=== PATIENT | female | born 1985 | race Caucasian/White ===

== ENCOUNTER → 2019-11-11 10:01 | Outpatient (CLI) | payer BC, SELFPAY ==
--- NOTE | ~2019-11-11 | US_ITS ---
EXAMINATION: US OB transvaginal DATE: 11/11/2019 11:18 INDICATION: Gestational dating TECHNIQUE: Real-time transabdominal and transvaginal obstetric ultrasound. FINDINGS: No prior studies for comparison. The uterus measures 6.7 x 5.3 x 6.5 cm. There is an intrauterine gestational sac, with pole jae ntified. There is a subchorionic hemorrhage measuring 9 x 8 x 4 mm. The crown rump length measures 1. 78 cm, which correlates with a estimated gestational age of 8 weeks 2 days. Ovaries are unremarkable. heart tones are identified measuring 172 bpm. IMPRESSION: 1. SL IUP with an EGA of 8 weeks, 2 days (EDC by current ultrasound of 06/20/2020). 2: Small subchorionic hemorrhage. Reviewed, dictated and finalized at location B. IMPRESSION: 1. SL IUP with an EGA of 8 weeks, 2 days (EDC by current ultrasound of ). 2: Small subchorionic hemorrhage.
== END ==
PROVIDERS: Visit Provider Obstetrics & Gynecology Gynecology
DX: O26.841 Uterine size-date discrepancy, first trimester (principal); Z3A.08 8 weeks gestation of pregnancy
CPT/HCPCS: 76817

== ENCOUNTER → 2019-12-09 11:22 | Outpatient (CLI) | payer BC, SELFPAY ==
--- NOTE | ~2019-12-09 | US_ITS ---
EXAMINATION: US OB <= 14 weeks fetus DATE: 12/09/2019 12:00 INDICATION: Subchorionic hematoma TECHNIQUE: Real-time pelvic ultrasound utilizing both a transvaginal and transabdominal probe was pe rformed. The interpreting radiologist was not present for the study. COMPARISON: None. FINDINGS: The uterus measures 8.9 x 7.1 x 7.5 cm. There is an intrauterine gestational sac. A yolk sac and fet al pole are identified. The crown rump length measures 5.7 cm, which correlates with an estimated ges tational age of 12 weeks and 2 days. heart motion is identified measuring 178 beats per minute (bpm) by M-mode Doppler. No evident subchorionic hematoma. The ovaries are not visualized. There is n o free fluid in the pelvis. IMPRESSION: 1. Single living fetus with heart rate of 178 bpm. 2. Gestational age by ultrasound of 12 weeks 2 day(s) +/- 1 week and 1 day with ultrasound estimated date of delivery (ANTONIO) of 06/20/2020. 3. No subchorionic hematoma. Reviewed, dictated and finalized at location B. IMPRESSION: 1. Single living fetus with heart rate of 178 bpm. 2. Gestational age by ultrasound of 12 weeks 2 day(s) +/- 1 week and 1 day wit h ultrasound estimated date of delivery (ANTONIO) of 06/20/2020. 3. No subchorionic hematoma.
== END ==
PROVIDERS: Visit Provider Obstetrics & Gynecology Gynecology
DX: O36.8910 Maternal care for other specified fetal problems, first trimester, not applicable or unspecified (principal); Z3A.12 12 weeks gestation of pregnancy
CPT/HCPCS: 76801

== ENCOUNTER → 2020-01-18 10:41 | Outpatient (CLI) | payer BC, SELFPAY ==
--- NOTE | ~2020-01-18 | US_ITS ---
EXAMINATION: US OB >= 14 weeks Fetus DATE: 01/18/2020 11:11 INDICATION: survey TECHNIQUE: Multiple obstetric sonographic images performed. FINDINGS: Comparison to multiple prior studies sequentially, with oldest reviewed study dated 020. There is a single living fetus in vertex presentation. The placenta is posterior without placenta pr evia. Placental margin is 3.2 cm to the cervix. Amniotic fluid volume is normal. cardiac activity and movement is noted with a heart rate of 147 beats per minute. The following anatomy was identified as normal: 4 chamber heart 3 vessel cord cord insertion kidneys urinary bladder stomach spine diaphragm ventricles cisterna magna cerebellum The following biometric data were obtained: BPD: 40mm corresponds to gestational age 18 weeks 2 days. Head circumference: 154 mm corresponds to gestational age 18 weeks 3 days. Abdominal circumference: 124 mm corresponds to gestational age 18 weeks 0 days. Femur length: 26 mm corresponds to gestational age 17 weeks 6 days. Head circumference to abdominal circumference ratio: 1.24 (normal range for expected gestational age is 1.08-1.27). Estimated weight: 220 grams +/- 33 grams using Hadlock method. IMPRESSION: 1: Single living intrauterine with an estimated gestational age of 18weeks 0days by initial ultrasound measurements, with an EDC of 06/20/2020 in vertex presentation. 2. Normal survey. 3: Low-lying posterior placenta measures 3.2 cm to the cervix. Reviewed, dictated and finalized at location A. UNICATION LECTURER IMPRESSION: 1: Single living intrauterine with an estimated gestational age of 18 weeks 0days by initial ultrasound measurements, with an EDC of 06/20/2020 in triston deepika presentation. 2. Normal survey. 3: Low-lying posterior placenta measures 3.2 cm to the cervix.
== END ==
PROVIDERS: Visit Provider Obstetrics & Gynecology Gynecology
DX: Z34.92 Encounter for supervision of normal pregnancy, unspecified, second trimester (principal); Z3A.18 18 weeks gestation of pregnancy
CPT/HCPCS: 76805

== ENCOUNTER 2020-03-29 11:41 | Outpatient (RCR) | payer BC, SELFPAY ==
[2020-03-29 13:11] LABS: Hematocrit 33.7 % (37.0-47.0); Hemoglobin 11.4 g/dL (12.0-15.0)
[2020-03-29 13:25] LABS: Glucose 1 Hour PP 50gm Dose 132 mg/dL
[2020-03-29 14:05] LABS: HIV 1/2 Ab P24 Ag Result Negative (Negative)
[2020-03-29] MEDS: RHO(D) IMMUNE GLOBULIN 300 MCG SYRINGE IM (15:10)
== END 2020-06-27 23:59 | disposition home or self-care (01) ==
LOC: ANHLAB 11:41
PROVIDERS: Visit Provider Obstetrics & Gynecology Gynecology
DX: Z29.13 Encounter for prophylactic Rho(D) immune globulin (principal); Z11.4 Encounter for screening for human immunodeficiency virus [HIV]; O36.0990 Maternal care for other rhesus isoimmunization, unspecified trimester, not applicable or unspecified; Z3A.00 Weeks of gestation of pregnancy not specified
CPT/HCPCS: 36415; 82306; 82947; 85014; 85018; 85461; 86703; 90384; 96372; G0432; J2790

== ENCOUNTER 2020-03-30 20:37 | Observation (INO) | payer BC, SELFPAY ==
[2020-03-30] VITALS (15 sets, daily range): BP systolic 137–159; BP diastolic 81–102; PULSE 74–85; BMI 31.2
[2020-03-30 21:25] LABS: Basophils Percent Auto 0.3 % (0.2-1.2); Eosinophils Absolute Auto 0.2 K/mm3 (0-0.3); Hemoglobin 11.3 g/dL (12.0-15.0); Immature Granulocyte Absolute 0.19 K/mm3 (0.00-0.031); Immature Granulocyte Percent A 1.3 % (0-0.5); Lymphocytes Absolute Auto 2.46 K/mm3 (0.9-3.2); Mean Corpuscular HGB Conc 34.2 g/dl (32-36); Mean Corpuscular Hemoglobin 29.9 pg (26-34); Mean Corpuscular Volume 87.3 fl (80-100); Monocytes Absolute Auto 0.9 K/mm3 (0.1-0.6); Monocytes Percent Auto 6.5 % (2.6-8.5); Neutrophils Absolute Auto 10.7 K/mm3 (1.3-6.7); Neutrophils Percent Auto 73.9 % (45.5-73.1); Platelet Count Result 275 k/mm3 (150-375); Red Blood Count 3.78 M/mm3 (4.2-5.4); Red Cell Distribution Width 14.4 % (11.5-14.5); White Blood Count 14.4 K/mm3 (4.5-10.0)
[2020-03-30 21:29] LABS: Add Urine Microscopic? YES; Appearance Urine Clear (Clear); Bacteria Urine Trace /hpf; Bilirubin Urine Negative (Negative); Blood Urine Negative (Negative); Calcium Oxalate Crystals Urine Present /hpf; Color Urine Yellow (Yellow); Glucose Urine UA Negative (Negative); Ketones Urine Negative (Negative); Leukocyte Esterase Ur Negative LEU/UL (NEGATIVE); Mucus Urine Rare /lpf; Nitrate Urine Negative (Negative); Protein Urine 1+ mg/dL (Negative); RBC Urine 0-2 /hpf (0-2); Specific Grav Ur 1.014 (1.001-1.035); Squamous Epithelial Cell Urine Occasional /hpf (Few); Urobilinogen Urine Negative mg/dL (<2.0); WBC Urine 0-3 /hpf (0-3)
[2020-03-30 21:37] LABS: Alanine Aminotransferase 14 U/L (4-35); Albumin Level 3.2 g/dL (3.5-5.1); Alkaline Phosphatase 89 U/L (38-126); Anion Gap 6 mmol/L (8-16); Aspartate Amino Transferase 19 U/L (14-36); Bilirubin,Total 0.2 mg/dL (0.2-1.3); Blood Urea Nitrogen 11 mg/dL (7-17); Calcium 9.3 mg/dL (8.4-10.2); Carbon Dioxide 22 mmol/L (22-30); Chloride 107 mmol/L (98-107); Estimated Glomerular Filt Rate > 60; Glucose 98 mg/dL (65-105); Sodium 135 mmol/L (137-145); Uric Acid 5.2 mg/dL (2.5-7.5)
[2020-03-30 21:39] LABS: Creatinine Urine 91.2 mg/dL; Total Protein Urine Random 19 mg/dL; Ur Ttl Prot Creatinine Ratio 0.21 mg/mg (0-0.20)
--- NOTE | 2020-03-30 22:45 | OBADM ---
This patient, Nithya Hong, admitted to the OB room OB Post 116 for observation. Patient/family oriented to hospital policies and general routines including ID bracelet, bed and alarms, visiting hours, pain management, procedures, bathroom and other care routines, personal items, smoking policy, room service/diet, and visiting hours. Patient/Family are encouraged to report perceived risks to care and to ask questions if they do not understand what they are told or what they should do.
[2020-03-31 00:01] VITALS: BP 148/83; PULSE 78
[2020-03-31] MEDS: NIFEdipine 30 MG TAB.ER.24 PO (00:10)
[2020-03-31 00:16] VITALS: BP 142/102; PULSE 80
[2020-03-31 00:31] VITALS: BP 147/108; PULSE 75
[2020-03-31 00:46] VITALS: BP 140/98; PULSE 79
[2020-03-31 01:01] VITALS: BP 129/85; PULSE 84
--- NOTE | 2020-04-16 11:32 | PM.OBTRLD ---
OB - Triage/Final Diagnosis Visit Information Comments/Additional reasons for admission: I have assessed the risk for this patient, Nithya Hong, and determined that she would benefit from observation care. Evaluation Laboratory results: Laboratory Tests 03/30/20 03/30/20 03/30/20 21:10 21:10 21:10 WBC 14.4 H RBC 3.78 L Hgb 11.3 L Hct 33.0 L MCV 87.3 MCH 29.9 MCHC 34.2 RDW 14.4 Plt Count 275 MPV 11.0 H Immature Gran % (Auto) 1.3 H Neut % (Auto) 73.9 H Lymph % (Auto) 17.0 L [place] % (Auto) 6.5 Eos % (Auto) 1.0 Baso % (Auto) 0.3 Lymph # (Auto) 2.46 [place] # (Auto) 0.9 H Eos # (Auto) 0.2 Baso # (Auto) 0.0 Abs Immat Gran (auto) 0.19 H Absolute Neuts (auto) 10.7 H Absolute Nucleated RBC 0.0 Nucleated RBC % 0.0 Sodium Potassium Chloride Carbon Dioxide Anion Gap BUN Creatinine Estim Creat Clear Calc Estimated GFR Glucose Uric Acid Calcium Total Bilirubin AST ALT Alkaline Phosphatase Total Protein Albumin Urine Color Yellow Urine Appearance Clear Urine pH 6.0 Ur Specific [place] 1.014 Urine Protein 1+ H Urine Glucose (UA) Negative Urine Ketones Negative Ur Blood (Man) Negative Urine Nitrate Negative Urine Bilirubin Negative Urine Urobilinogen Negative Ur Leukocyte Esterase Negative Urine RBC 0-2 Urine WBC 0-3 Ur Squamous Epith Cells Occasional Calcium Oxalate Crystal Present Urine Bacteria Trace Urine Mucus Rare U Random Total Protein 19 Urine Creatinine 91.2 Protein/Creat Ratio 2 0.21 H 03/30/20 21:10 WBC RBC Hgb Hct MCV MCH MCHC RDW Plt Count MPV Immature Gran % (Auto) Neut % (Auto) Lymph % (Auto) [place] % (Auto) Eos % (Auto) Baso % (Auto) Lymph # (Auto) [place] # (Auto) Eos # (Auto) Baso # (Auto) Abs Immat Gran (auto) Absolute Neuts (auto) Absolute Nucleated RBC Nucleated RBC % Sodium 135 L Potassium 4.0 Chloride 107 Carbon Dioxide 22 Anion Gap 6 L BUN 11 Creatinine 0.70 Estim Creat Clear Calc Not Reportable Estimated GFR > 60 Glucose 98 Uric Acid 5.2 Calcium 9.3 Total Bilirubin 0.2 AST 19 ALT 14 Alkaline Phosphatase 89 Total Protein 6.0 L Albumin 3.2 L Urine Color Urine Appearance Urine pH Ur Specific [place] Urine Protein Urine Glucose (UA) Urine Ketones Ur Blood (Man) Urine Nitrate Urine Bilirubin Urine Urobilinogen Ur Leukocyte Esterase Urine RBC Urine WBC Ur Squamous Epith Cells Calcium Oxalate Crystal Urine Bacteria Urine Mucus U Random Total Protein Urine Creatinine Protein/Creat Ratio 2 Final Diagnosis (1) PIH ( induced hypertension): Code(s): O13.9 - Gestational [-induced] hypertension without significant proteinuria, unspecified trimester Status: Acute
== END 2020-03-31 01:33 | disposition home or self-care (01) ==
PROVIDERS: Admitting Provider Obstetrics & Gynecology; Visit Provider Obstetrics & Gynecology
DX: O13.3 Gestational [pregnancy-induced] hypertension without significant proteinuria, third trimester (principal); Z3A.28 28 weeks gestation of pregnancy
CPT/HCPCS: 36415; 59025; 80053; 81001; 82570; 84156; 84550; 85025; 87086; 87088; A9270; G0378; G0379

== ENCOUNTER 2020-03-31 20:54 | Outpatient (NON) | payer BC, SELFPAY ==
[2020-03-31 21:19] VITALS: BMI 31.2
[2020-03-31 21:29] LABS: Collection Time Urine 24 HOURS
[2020-03-31 21:38] LABS: Creatinine Urine 59.5 mg/dL; Patient Weight 176 Lbs; Total Protein Urine Random 14 mg/dL
[2020-03-31 21:39] LABS: Total Protein Urine 24 Hr 280 MG/DAY (28-141); Total Volume 24 Hour Urine 2000 ml
[2020-03-31 21:48] LABS: Creatinine Clearance Urine 111.9 ml/min (75-125); Serum Creat 0.7
== END 2020-03-31 20:55 ==
LOC: ANHOBOP 20:56
PROVIDERS: Obstetrics & Gynecology; Visit Provider Obstetrics & Gynecology Gynecology
DX: O13.9 Gestational [pregnancy-induced] hypertension without significant proteinuria, unspecified trimester (principal); Z3A.00 Weeks of gestation of pregnancy not specified
CPT/HCPCS: 81050; 82575; 84156

== ENCOUNTER 2020-04-05 06:51 | Outpatient (CLI) | payer BC, SELFPAY ==
[2020-04-05 07:37] LABS: Glucose Fasting Gestational 93 mg/dL (>/=95)
[2020-04-05 09:06] LABS: Glucose 1 Hour Gest 158 mg/dL (>/=180)
[2020-04-05 10:13] LABS: Glucose 2 Hour Gest 124 mg/dL (>/= 155)
[2020-04-05 11:28] LABS: Glucose 3 Hour Gest 129 mg/dL (>/=140)
== END 2020-04-05 06:52 | disposition home or self-care (01) ==
PROVIDERS: Visit Provider Obstetrics & Gynecology Gynecology
DX: O99.810 Abnormal glucose complicating pregnancy (principal); Z3A.20 20 weeks gestation of pregnancy
CPT/HCPCS: 36415; 82951; 82952

== ENCOUNTER 2020-04-05 11:19 | Outpatient (CLI) | payer BC, SELFPAY ==
--- NOTE | ~2020-04-05 | US_ITS ---
EXAMINATION: US OB follow up DATE: 04/05/2020 12:11 INDICATION: Low-lying placenta during third trimester TECHNIQUE: Real-time ultrasound of the pelvis was performed. The interpreting radiologist was not pre sent for the study. COMPARISON: 01/18/2020 FINDINGS: There is a single living fetus in vertex presentation. The placenta is posterior and 1.9 cm from the internal cervical os. cardiac activity and movement are noted. heart rate is 133 beats per minute (bpm). The amniotic fluid index is 15.3 cm which is normal. There is subopti mal evaluation of the ventricular outflow tracts of the heart. The following biometric data were obtained: Biparietal diameter (BPD): 7.7 cm; head circumference (HC): 27.7 cm; abdominal circumference (AC): 24 .7 cm; femur length (FL): 5.2 cm. The femoral length to biparietal diameter ratio is discordant. Estimated weight is 1304 g +/- 1 95 g, which correlates with the 29th percentile when 06/20/2020 is used as estimated date of delivery. As single measurements, these parameters are each equal to the following estimated gestational ages w ith ranges of +/- 2 standard deviations: BPD: 31 weeks 0 days ( 27 weeks 6 days - 34 weeks 0 days). HC: 30 weeks 2 days ( 27 weeks 2 days - 33 weeks 2 days). AC: 29 weeks 0 days ( 26 weeks 5 days - 31 weeks 1 days). FL: 28 weeks 0 days ( 26 weeks 0 days - 30 weeks 1 days). estimated gestational age based solely on measurements from this exam is 29 weeks 4 days +/- 2 weeks 0 days. IMPRESSION: 1. Single living fetus in vertex presentation. 2. Estimated weight is 1304 g +/- 195 g, which correlates with the 29th percentile when 06/21/19 21 is used as estimated date of delivery. 3. Normal amniotic fluid index. 4. Low-lying placenta. 5. Discordant femoral length to biparietal diameter ratio. 6. Ventricular outflow tracts not well demonstrated. Reviewed, dictated and finalized at location A. SHUCKER IMPRESSION: 1. Single living fetus in vertex presentation. 2. Estimated weight is 1304 g +/- 195 g, which correlates with the 29th p ercentile when 06/20/2020 is used as estimated date of delivery. 3. Normal amniotic fluid index. 4. Low-lying placenta. 5. Discordant femoral length to biparietal diameter ratio. 6. Ventricular outflow tracts not well demonstrated.
== END 2020-04-05 11:20 ==
PROVIDERS: Visit Provider Obstetrics & Gynecology Gynecology
DX: O13.3 Gestational [pregnancy-induced] hypertension without significant proteinuria, third trimester (principal); O44.40 Low lying placenta NOS or without hemorrhage, unspecified trimester; Z3A.00 Weeks of gestation of pregnancy not specified
CPT/HCPCS: 76816

== ENCOUNTER 2020-04-17 03:00 | Inpatient (IN) | payer BC, SELFPAY ==
[2020-04-17] VITALS (29 sets, daily range): BP systolic 119–170; BP diastolic 71–122; PULSE 70–95; TEMP 36.9–37.2; BMI 32.2
--- NOTE | ~2020-04-17 | US_ITS ---
EXAMINATION: US umbilical doppler, US OB limited w BPP EXAM DATE: 04/17/2020 11:38 INDICATION: Preeclampsia. 3rd trimester. TECHNIQUE: Pelvic obstetrical transabdominal sonogram was performed by a technologist. There are mu ltiple grayscale and Doppler images available for interpretation. Comparison is made to prior examina tion from 04/05/2020. FINDINGS: There is a single fetus identified in vertex presentation with a heart rate of 159 beats pe r minute. The placenta is located in the posterior position. There is no sonographic evidence of ret roplacental hemorrhage identified. The amniotic fluid index is 10.2 centimeters, which is normal. The 5th -- 95th percentile range is 8.8-23.8 (31 weeks gestation age). UMBILICAL ARTERY DOPPLER Systolic/diastolic ratios obtained as follows: Near baby: 7.6, 9.6 Mid aspect: 5.4, 7.1 Near Placenta: 8.1, 9.8 (The 5th -- 95th percentile range is 2.21-3.97). IMPRESSION: 1. Single fetus in vertex presentation with heart rate 159 beats per minute. 2. Significantly elevated umbilical artery Doppler ratios, averaged at 7.9. 3. Amniotic fluid index 10.2 cm, normal. Reviewed, dictated and finalized at location B. FITTER WELDER IMPRESSION: 1. Single fetus in vertex presentation with heart rate 159 beats per minute. 2. Significantly elevated umbilical artery Doppler ratios, averaged at 7.9. 3. Amniotic fluid index 10.2 cm, normal.
--- NOTE | ~2020-04-17 | US_ITS ---
EXAMINATION: US OB follow up w BPP, US umbilical doppler DATE: 04/19/2020 08:27 INDICATION: Assess growth and biophysical profile during third trimester . Prior eleva linda umbilical artery Doppler systolic to diastolic velocity ratio. TECHNIQUE: Real-time pelvic ultrasound was performed. The interpreting radiologist was not present fo r the study. COMPARISON: 04/17/2020 FINDINGS: There is a single living fetus in vertex presentation. The placenta is anterior. heart rate is 139 beats per minute (bpm). Normal amniotic fluid index of 12.1 cm (5th%-95%: 8.8-3.8 cm at 31 weeks estimated gestational age). Biophysical profile performed by the technologist: breathing (30 sec sustained breathing in 30 minutes): 2 out of 2 movement (3 gross body movements in 30 minutes): 2 out of 2 tone (one episode of ufxyqtg-vfdzzwvmy-winkjzm limb movement): 2 out of 2 Amniotic fluid pocket (2 cm): 2 out of 2 Total score: 8 out of 8 There is no discernible flow during the final half of the diastole in the umbilical artery at the fet us, placenta and mid cord yielding an unmeasurable elevated systolic to diastolic ratio. IMPRESSION: 1. Single living fetus in vertex presentation with heart rate of 139 bpm. 2. Biophysical profile 8 out of 8. 3. Significantly elevated umbilical artery Doppler ratios, essentially unmeasurable due to absence of flow during the latter half of the diastole. 4. Normal amniotic fluid index of 12.1 cm. Reviewed, dictated and finalized at location A. ZING ROOM WORKER IMPRESSION: 1. Single living fetus in vertex presentation with heart rate of 139 bpm. 2. Biophysical profile 8 out of 8. 3. Significantly elevated umbilical artery Doppler ratios, essentially unmeasur able due to absence of flow during the latter half of the diastole. 4. Normal amniotic fluid index of 12.1 cm.
--- NOTE | 2020-04-17 03:21 | PC.NURSE ---
Pt denies leaking fluid or bleeding. Pt feeling movements.
[2020-04-17] MEDS: ACETAMINOPHEN 500 MG TABLET 1000 MG PO (05:32)
[2020-04-17] MEDS: CYCLOBENZAPRINE HCL 10 MG TABLET PO (05:32)
[2020-04-17] MEDS: LABETALOL HCL 100 MG TABLET 300 MG PO ×4 (06:55→22:04)
--- NOTE | 2020-04-17 07:58 | PM.OBTRLD ---
OB - Triage/Final Diagnosis Visit Information Reason for evaluation: other (back and groin pain; preeclampsia) Comments/Additional reasons for admission: I have assessed the risk for this patient, Nithya Hong, and determined that she would benefit from observation care. Evaluation Vital signs: Vital Signs - 24 hr 04/17/20 03:22 04/17/20 03:33 04/17/20 03:46 Temperature 98.4 F Pulse Rate 78 81 Blood Pressure 148/101 H 157/107 H 04/17/20 04:01 04/17/20 04:16 04/17/20 04:31 Temperature Pulse Rate 75 78 79 Blood Pressure 155/103 H 155/100 H 161/105 H 04/17/20 04:46 04/17/20 05:01 04/17/20 05:15 Temperature Pulse Rate 71 74 95 Blood Pressure 158/97 H 157/104 H 170/122 H 04/17/20 05:31 04/17/20 05:42 04/17/20 06:01 Temperature 98.4 F Pulse Rate 76 72 Blood Pressure 151/101 H 158/108 H 04/17/20 06:31 04/17/20 06:55 04/17/20 07:01 Temperature Pulse Rate 75 88 79 Blood Pressure 152/99 H 141/99 H 04/17/20 07:31 Temperature Pulse Rate 78 Blood Pressure 145/93 H Comments: Patient feeling much better after flexeril and tylenol. BP stable. DC home
[2020-04-17] MEDS: NIFEdipine 30 MG TAB.ER.24 60 MG PO (08:18)
--- NOTE | 2020-04-17 10:36 | PC.NURSE ---
1035- SPoke with Dr. Kraft, [facility] strip reviewed. Orders for BPP< JOSE and cord dopplers. If those normal, patient may be discharged to home.
--- NOTE | 2020-04-17 12:30 | PC.NURSE ---
1215- Spoke with Dr. Kraft, reviewed US report. orders for patient to stay overnight on continuous monitoring.
--- NOTE | 2020-04-17 13:44 | PC.NURSE ---
5516- Spoke with Dr. Kraft regarding EFM strip. Minimal variability at times, with small variables. Orders received for Betamethasonex2 doses 24 hours apart.
[2020-04-17] MEDS: BETAMETHASONE SOD PHOS/ACETATE 30 MG/5 ML VIAL 12 MG IM (14:00)
[2020-04-17] MEDS: NIFEdipine 30 MG TAB.ER.24 PO (20:31)
[2020-04-18] VITALS (12 sets, daily range): BP systolic 125–152; BP diastolic 78–101; PULSE 71–83; TEMP 36.9
[2020-04-18] MEDS: LABETALOL HCL 100 MG TABLET 300 MG PO ×5 (03:01→23:06)
[2020-04-18] MEDS: NIFEdipine 30 MG TAB.ER.24 60 MG PO (08:03)
[2020-04-18] MEDS: BETAMETHASONE SOD PHOS/ACETATE 30 MG/5 ML VIAL 12 MG IM (13:42)
--- NOTE | 2020-04-18 15:14 | PM.IMHP ---
H&P: HPI History of Present Illness Date/Time: 04/18/20 15:14 Chief Complaint: back pain Narrative: Nithya Hong is a 34 year old female primip @33 weeks admitted for variable decels and elevated dopplers.Patient came in for back pain which improved fllexaril and elevated pressurs. BP meds adjusted however decels noted on nST. Review of Systems Review of Systems: Narrative: patient denies VOSS, vision changes, GI symptoms, mild swelling PMFSH Past Medical History Medical History (Updated 04/18/20 @ 17:04 by Justin Galicia MD) heart rate deceleration, delivered, current hospitalization PIH ( induced hypertension) Pre-eclampsia Meds Home Medications and Allergies Home Medications Medication Instructions Recorded Confirmed Type Classic 1 tablet DAILY 04/17/20 04/17/20 History aspirin 81 mg PO DAILY 04/17/20 04/17/20 History labetalol 300 mg PO Q5H 04/17/20 04/17/20 History nifedipine 30 mg PO HS 04/17/20 04/17/20 History nifedipine 60 mg PO DAILY 04/17/20 04/17/20 History Allergies Allergy/AdvReac Type Severity Reaction Status Date / Time diphenhydramine Allergy Hives Verified 04/17/20 13:43 [From Benadryl] morphine Allergy Hives Verified 04/17/20 13:43 Vital Signs Vital Signs - 24 hr 04/17/20 16:42 04/17/20 18:49 04/17/20 20:32 Temperature 36.9 C Pulse Rate 85 86 86 Blood Pressure 119/71 125/88 126/82 04/17/20 22:04 04/17/20 22:05 04/18/20 03:01 Temperature Pulse Rate 84 80 74 Blood Pressure 143/80 H 138/89 04/18/20 05:27 04/18/20 08:01 04/18/20 08:02 Temperature 36.9 C Pulse Rate 71 72 72 Blood Pressure 128/89 125/87 04/18/20 12:33 04/18/20 12:34 Temperature Pulse Rate 81 73 Blood Pressure 132/92 H Exam Narrative: Exam Narrative: abdomen soft nontender, nondistended, movement noted. Const: General: cooperative and in distress Resp: Effort & Inspection: normal respiratory effort Cardio: Rate: regular rate Rhythm: regular rhythm H&P: Results Labs Labs: elevated dopplers at 7.9 Assessment and Plan Assessment and plan (1) PIH ( induced hypertension): Code(s): O13.9 - Gestational [-induced] hypertension without significant proteinuria, unspecified trimester Status: Acute (2) Pre-eclampsia: Code(s): O14.90 - Unspecified pre-eclampsia, unspecified trimester Status: Acute Assessment and Plan: - continue with bedrest and Labetalol 300mg q 5 hours and Procardia 60mg q day. tolerating well. Bps stable complete bedrest. (3) heart rate deceleration, delivered, current hospitalization: Code(s): O76 - Abnormality in heart rate and rhythm complicating labor and delivery Status: Acute Assessment and Plan: FWB reassuring, elevated dopplers, steroids 04/17-. repeat dopplers twice a week, weigh [id number] continuous continuous monitoring.
[2020-04-19] VITALS (10 sets, daily range): BP systolic 131–158; BP diastolic 80–97; PULSE 63–75; TEMP 36.9–37.2
[2020-04-19] MEDS: LABETALOL HCL 100 MG TABLET 300 MG PO ×3 (04:19→15:10)
--- NOTE | 2020-04-19 07:50 | PM.OBPNVD ---
OB - PN: Subj Subjective Date/time seen: 04/19/20 07:50 Interval history: Patient without PIH sx. Rare contraction felt. OB - PN A/P Assessment and Plan (1) 30 weeks gestation of : Code(s): Z3A.30 - 30 weeks gestation of Status: Acute Assessment and Plan: 30 6/7 weeks Fetus with elevated dopplers-recheck today FHTs mostly reassuring Plan continuous monitoring-offered transfer and explained what would happen if emergency (2) Pre-eclampsia: Code(s): O14.90 - Unspecified pre-eclampsia, unspecified trimester Status: Acute Assessment and Plan: BP stable recheck labs today Time Spent With Patient Time: Total time spent is greater than 50% in coordination of care (as documented) at patient's floor/unit and/or counseling patient: Exam Narrative: Exam Narrative: Abdomen soft, nt FHT's reactive with random episodes of decreased variability and occ 20-40 sec decels
[2020-04-19 08:02] LABS: Hematocrit 31.8 % (37.0-47.0); Hemoglobin 10.9 g/dL (12.0-15.0); Mean Corpuscular HGB Conc 34.3 g/dl (32-36); Mean Corpuscular Hemoglobin 30.4 pg (26-34); Mean Corpuscular Volume 88.8 fl (80-100); Mean Platelet Volume 11.2 fl (7.4-10.4); Platelet Count Result 193 k/mm3 (150-375); Red Blood Count 3.58 M/mm3 (4.2-5.4); Red Cell Distribution Width 15.1 % (11.5-14.5); White Blood Count 18.9 K/mm3 (4.5-10.0)
[2020-04-19 08:17] LABS: Alanine Aminotransferase 35 U/L (4-35); Albumin Level 3.1 g/dL (3.5-5.1); Alkaline Phosphatase 98 U/L (38-126); Anion Gap 6 mmol/L (8-16); Aspartate Amino Transferase 24 U/L (14-36); Bilirubin,Total 0.2 mg/dL (0.2-1.3); Blood Urea Nitrogen 21 mg/dL (7-17); Calcium 9.5 mg/dL (8.4-10.2); Carbon Dioxide 18 mmol/L (22-30); Chloride 111 mmol/L (98-107); Estimated CRCL calculation 131 ml/min; Estimated Glomerular Filt Rate > 60; Glucose 105 mg/dL (65-105); Potassium 4.5 mmol/L (3.4-5.0); Sodium 135 mmol/L (137-145); Uric Acid 5.4 mg/dL (2.5-7.5)
[2020-04-19] MEDS: NIFEdipine 30 MG TAB.ER.24 60 MG PO (08:30)
--- NOTE | 2020-04-19 12:57 | PM.OBPNVD ---
OB - PN: Subj Subjective Date/time seen: 04/19/20 12:57 OB - PN: Obj Data Labs CBC & Chem 7: 04/19/20 07:56 04/19/20 07:56 Labs: Laboratory Results - last 24 hr 04/19/20 04/19/20 07:56 07:56 WBC 18.9 H RBC 3.58 L Hgb 10.9 L Hct 31.8 L MCV 88.8 MCH 30.4 MCHC 34.3 RDW 15.1 H Plt Count 193 MPV 11.2 H Sodium 135 L Potassium 4.5 Chloride 111 H Carbon Dioxide 18 L Anion Gap 6 L BUN 21 H D Creatinine 0.50 L Estim Creat Clear Calc 131 Estimated GFR > 60 Glucose 105 Uric Acid 5.4 Calcium 9.5 Total Bilirubin 0.2 AST 24 ALT 35 Alkaline Phosphatase 98 Total Protein 6.0 L Albumin 3.1 L Imaging Radiologist's impression: Impressions Doppler Study 04/19/20 08:28 IMPRESSION: 1. Single living fetus in vertex presentation with heart rate of 139 bpm. 2. Biophysical profile 8 out of 8. 3. Significantly elevated umbilical artery Doppler ratios, essentially unmeasurable due to absence of flow during the latter half of the diastole. 4. Normal amniotic fluid index of 12.1 cm. ADDENDUM: 04/19/20 1003 ADDENDUM: The umbilical arterial Doppler ratio template was inadvertently overwritten over the template for the biometric data. The findings section should include- The following biometric data were obtained: BPD: 7.9 cm -> 31 weeks 4 days Head circumference: 28.5 cm -> 31 weeks 2 days Abdominal circumference: 27.3 cm -> 31 weeks 2 days Femur length: 5.5 cm -> 29 weeks 0 days The femur length to biparietal diameter ratio of 69.9 is below the normal range (71.0-87.0). These measurements are otherwise concordant. Head circumference to abdominal circumference ratio: 1.05 (normal range 0.96-1.17). Estimated weight: 1612 g (+/-) 242 g. or 3 lbs. 9 oz. (+/-) 9 oz. Impression should also include- 5. Estimated weight is 23rd percentile by Hadlock criteria when 06/20/2020 is used as the estimated date of delivery (ANTONIO). Please correlate with clinical information or earlier ultrasounds for most accurate ANTONIO. Obstetrical Follow-Up 04/19/20 08:28 IMPRESSION: 1. Single living fetus in vertex presentation with heart rate of 139 bpm. 2. Biophysical profile 8 out of 8. 3. Significantly elevated umbilical artery Doppler ratios, essentially unmeasurable due to absence of flow during the latter half of the diastole. 4. Normal amniotic fluid index of 12.1 cm. ADDENDUM: 04/19/20 1003 ADDENDUM: The umbilical arterial Doppler ratio template was inadvertently overwritten over the template for the biometric data. The findings section should include- The following biometric data were obtained: BPD: 7.9 cm -> 31 weeks 4 days Head circumference: 28.5 cm -> 31 weeks 2 days Abdominal circumference: 27.3 cm -> 31 weeks 2 days Femur length: 5.5 cm -> 29 weeks 0 days The femur length to biparietal diameter ratio of 69.9 is below the normal range (71.0-87.0). These measurements are otherwise concordant. Head circumference to abdominal circumference ratio: 1.05 (normal range 0.96-1.17). Estimated weight: 1612 g (+/-) 242 g. or 3 lbs. 9 oz. (+/-) 9 oz. Impression should also include- 5. Estimated weight is 23rd percentile by Hadlock criteria when 06/20/2020 is used as the estimated date of delivery (ANTONIO). Please correlate with clinical information or earlier ultrasounds for most accurate ANTONIO. OB - PN A/P Assessment and Plan (1) Pre-eclampsia: Code(s): O14.90 - Unspecified pre-eclampsia, unspecified trimester Status: Acute Assessment and Plan: Now absent end-diastolic flow so will transfer to [facility] for tertiary car. Reviewed with patient and she agrees. (2) 30 weeks gestation of : Code(s): Z3A.30 - 30 weeks gestation of Status: Acute Time Spent With Patient Time: Total time spent is greater than 50% in coordinati
--- NOTE | 2020-04-19 12:58 | PM.DS ---
DS: Admitting Diagnosis Admitting Diagnosis Admitting Diagnosis: IUP 30 4/7 wks Preeclampsia back pain DS: Discharge Diagnosis Discharge Diagnosis (1) 30 weeks gestation of : Code(s): Z3A.30 - 30 weeks gestation of Status: Acute Assessment and Plan: 30 6/7 weeks (2) Pre-eclampsia: Code(s): O14.90 - Unspecified pre-eclampsia, unspecified trimester Status: Acute DS: Summary Hospital Course Reason for hospitalization: decels Hospital Course: To hospital for complaint of severe back and groin pain. This resolved with flexeril and tylenol. When ready to dc home was noted to have have contractions not felt with some late decels. U/s done showed elevated dopplers so admitted and gave steroids 04/17 and 04/18. Added procardia 30 mg at hs for contractions which resolved. BP's have been stable and no PIH sx. Repeat dopplers today showed absent end diastolic flow so decision made to transfer to [facility]. Status at Discharge Overall status at discharge: patient is back to baseline Time Spent with Patient Time attestation: Total time spent providing and/or coordinating discharge services: DS: Data Data Completed and Pending Labs on day of discharge: Labs from last 24 hours 04/19/20 04/19/20 07:56 07:56 WBC 18.9 H RBC 3.58 L Hgb 10.9 L Hct 31.8 L MCV 88.8 MCH 30.4 MCHC 34.3 RDW 15.1 H Plt Count 193 MPV 11.2 H Sodium 135 L Potassium 4.5 Chloride 111 H Carbon Dioxide 18 L Anion Gap 6 L BUN 21 H D Creatinine 0.50 L Estim Creat Clear Calc 131 Estimated GFR > 60 Glucose 105 Uric Acid 5.4 Calcium 9.5 Total Bilirubin 0.2 AST 24 ALT 35 Alkaline Phosphatase 98 Total Protein 6.0 L Albumin 3.1 L Discharge Plan Discharge Attending physician on discharge: Jolly Kraft Discharging Clinician: Jolly Kraft Anticipated Discharge Date/Time: 04/19/20 13:02 Patient Disposition: Acute Care Hospital Diet: regular Discharge Instructions: transfer to 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
== END 2020-04-19 16:45 | disposition short-term general hospital (02) | DRG 832 ==
PROVIDERS: Obstetrics & Gynecology; Admitting Provider Obstetrics & Gynecology Gynecology; Visit Provider Obstetrics & Gynecology Gynecology
DX: O36.8330 Maternal care for abnormalities of the fetal heart rate or rhythm, third trimester, not applicable or unspecified (principal); O14.93 Unspecified pre-eclampsia, third trimester; Z3A.33 33 weeks gestation of pregnancy; O13.3 Gestational [pregnancy-induced] hypertension without significant proteinuria, third trimester
CPT/HCPCS: 36415; 76815; 76816; 76819; 76820; 80053; 84550; 85027; A9270; J0702